=== PATIENT | female | born 1950 | race Caucasian/White ===

== ENCOUNTER → 2024-04-09 | Outpatient (CLI) | payer MEDICARE ==
[~2024-04-09] MED LIST: DAYPRO600 M1 PO; ROBAXIN750 MG PO
== END | disposition home or self-care (01) ==
LOC: RESCLI 10:57
PROVIDERS: ATTEND Student in an Organized Health Care Education/Training Program
DX: I48.91 Unspecified atrial fibrillation (principal); L30.9 Dermatitis, unspecified; E11.9 Type 2 diabetes mellitus without complications; N89.8 Other specified noninflammatory disorders of vagina; K21.9 Gastro-esophageal reflux disease without esophagitis; F41.9 Anxiety disorder, unspecified; E78.5 Hyperlipidemia, unspecified; I11.0 Hypertensive heart disease with heart failure; I50.9 Heart failure, unspecified; M10.9 Gout, unspecified; G89.29 Other chronic pain; R42 Dizziness and giddiness; Z79.899 Other long term (current) drug therapy; Z98.890 Other specified postprocedural states; Z88.5 Allergy status to narcotic agent; Z88.2 Allergy status to sulfonamides; Z88.8 Allergy status to other drugs, medicaments and biological substances